=== PATIENT | female | born 1990 | race Caucasian/White ===

== ENCOUNTER 2017-11-16 11:33 | Inpatient (IN) | payer MEDICAID ==
[2017-11-16] MEDS ORDERED: LIDOCAINE 1% (MPF) 30 ML INJ INJ (12:00)
[2017-11-16] MEDS ORDERED: BUTORPHANOL 2 MG INJ IV (12:00)
[2017-11-16] MEDS ORDERED: MISOPROSTOL 200 MCG TAB PR ×2 (12:00→14:30)
[2017-11-16] MEDS ORDERED: CARBOPROST 250 MCG INJ IM ×2 (12:00→14:30)
[2017-11-16] MEDS ORDERED: OXYTOCIN 30 UNITS/LR 500 ML IV ×2 (12:00→14:30)
[2017-11-16] MEDS ORDERED: METHYLERGONOVINE 0.2 MG INJ IM ×2 (12:00→14:30)
[2017-11-16] MEDS ORDERED: AMPICILLIN 2 GM/NS (PMX) 100 ML (12:13)
[2017-11-16 12:16] LABS: ADD MAN DIFF? NO
[2017-11-16] MEDS: LACTATED RINGER'S 1,000 ML IV (12:17)
[2017-11-16 12:20] LABS: WHITE BLOOD COUNT 11.5 10^3/ul (4.8-10.8)
[2017-11-16 12:20] LABS: BASOPHIL # 0.1 10^3/ul (0.0-0.1); BASOPHILS % 0.6 % (0.0-2.0); EOSINOPHILS % 0.3 % (0.0-7.0); HEMATOCRIT 37.2 % (37.0-47.0); HEMOGLOBIN 12.6 g/dl (12.0-16.0); LYMPHOCYTES # 2.1 10^3/ul (0.8-2.9); MEAN CORPUSCULAR HEMOGLOBIN 30.1 pg (29.0-33.0); MEAN CORPUSCULAR HGB CONC 33.9 g/dl (32.0-37.0); MEAN PLATELET VOLUME 11.6 fl (7.4-10.4); MONOCYTE # 0.7 10^3/ul (0.3-0.9); MONOCYTES % 5.9 % (0.0-11.0); NEUTROPHIL # 8.4 10^3/ul (1.6-7.5); NEUTROPHILS % 73.3 % (39.0-77.0); PLATELET COUNT 256 10^3/UL (140-415); RED BLOOD COUNT 4.18 10^6/ul (4.20-5.40); RED CELL DISTRIBUTION WIDTH 13.5 % (11.5-14.5)
[2017-11-16] MEDS: AMPICILLIN 2 GM/NS (PMX) 100 ML IV (12:24)
[2017-11-16] MEDS: OXYTOCIN 30 UNITS/LR 500 ML IV ×3 (12:41→18:10)
[2017-11-16 12:46] LABS: INR 0.87; PROTIME 11.9 Sec (11.9-14.9); PT RATIO 0.9
[2017-11-16 12:47] LABS: PARTIAL THROMBOPLASTIN TIME 29.6 Sec (25.0-35.0)
[2017-11-16 13:20] LABS: HEPATITIS B SURFACE ANTIGEN NEGATIVE (NEGATIVE)
[2017-11-16] MEDS ORDERED: MAGNESIUM HYDROXIDE 30ML CUP PO (14:30)
[2017-11-16] MEDS ORDERED: ZOLPIDEM 5 MG TAB PO (14:30)
[2017-11-16] MEDS ORDERED: ACETAMINOPHEN 325 MG TAB PO (14:30)
[2017-11-16] MEDS ORDERED: DIPHENHYDRAMINE 25 MG CAP PO (14:30)
[2017-11-16] MEDS ORDERED: HYDROCODONE/APAP (5/325) TAB PO (14:30)
[2017-11-16 15:04] LABS: RAPID PLASMA REAGIN NONREACTIVE (NR)
[2017-11-16] MEDS ORDERED: AMPICILLIN 1 GM/NS (PMX) 50 ML IV (16:30)
[2017-11-16] MEDS: IBUPROFEN 800 MG TAB PO ×2 (18:08→23:38)
[2017-11-16] MEDS: BENZOCAINE 20% 56 ML SPRAY TOP (18:08)
[2017-11-16] MEDS: WITCH HAZEL/GLYCERIN PAD PR (18:09)
[2017-11-16] MEDS: LANOLIN 7 GM TUBE TOP (18:11)
[2017-11-16] MEDS: LACTATED RINGER'S 1,000 ML IV* ×2 (18:11→22:11)
[2017-11-16] MEDS: SENNA/DOCUSATE NA (8.6MG/50MG) TAB PO (23:08)
[2017-11-17 02:47] LABS: AMPHETAMINE/METHAMPHETAMINE Negative (NEGATIVE); BARBITURATES Negative (NEGATIVE); BENZODIAZEPINES Negative (NEGATIVE); CANNABINOIDS Negative (NEGATIVE); COCAINE Negative (NEGATIVE); OPIATES Negative (NEGATIVE)
[2017-11-17] MEDS: IBUPROFEN 800 MG TAB PO ×4 (05:29→23:54)
[2017-11-17] MEDS: LACTATED RINGER'S 1,000 ML IV* ×2 (06:11→14:11)
[2017-11-17 09:11] LABS: ADD MAN DIFF? NO
[2017-11-17 09:13] LABS: WHITE BLOOD COUNT 11.3 10^3/ul (4.8-10.8)
[2017-11-17 09:13] LABS: BASOPHIL # 0.1 10^3/ul (0.0-0.1); BASOPHILS % 0.6 % (0.0-2.0); EOSINOPHILS # 0.1 10^3/ul (0.0-0.5); EOSINOPHILS % 1.2 % (0.0-7.0); HEMATOCRIT 35.6 % (37.0-47.0); HEMOGLOBIN 11.7 g/dl (12.0-16.0); LYMPHOCYTES # 2.1 10^3/ul (0.8-2.9); LYMPHOCYTES % 18.4 % (15.0-51.0); MEAN CORPUSCULAR HGB CONC 32.9 g/dl (32.0-37.0); MEAN CORPUSCULAR VOLUME 91.3 fl (82.0-101.0); MEAN PLATELET VOLUME 11.9 fl (7.4-10.4); MONOCYTE # 0.6 10^3/ul (0.3-0.9); MONOCYTES % 5.1 % (0.0-11.0); NEUTROPHIL # 8.3 10^3/ul (1.6-7.5); PLATELET COUNT 249 10^3/UL (140-415); RED CELL DISTRIBUTION WIDTH 13.6 % (11.5-14.5)
[2017-11-18] MEDS: IBUPROFEN 800 MG TAB PO ×2 (05:42→11:55)
[2017-11-18] MEDS: MEASLES,MUMPS,RUBELLA VACCINE INJ SC* (09:00)
[2017-11-18] MEDS: VARICELLA VACCINE LIVE/PF 1,350 UNIT/0.5 ML ML SC* (09:00)
[2017-11-18] MEDS: DIPHTH/TET/ACEL PERTUSS (ADULT) 0.5 ML VIAL IM* (11:56)
== END 2017-11-18 14:05 | disposition home or self-care (01) | DRG 775 ==
LOC: OBT 11:33 → L-D 11:35 → OBT 11:45 → L-D 11:45 → PP1 14:09
PROVIDERS: Obstetrics & Gynecology
PROC: 10E0XZZ Delivery of Products of Conception, External Approach (ICD-10-PCS; principal; 2017-11-16)
DX: O80 Encounter for full-term uncomplicated delivery (principal); Z3A.38 38 weeks gestation of pregnancy; Z37.0 Single live birth
CPT/HCPCS: 80307; 85025; 85610; 85730; 86592; 86850; 86900; 86901; 87340; 90715